=== PATIENT | female | born 1960 | race Caucasian/White ===

== ENCOUNTER 2020-09-24 05:45 | Day surgery (SDC) | payer MEDICARE ==
[~2020-09-24] VITALS: Ht 170.2 cm; Wt 56.7 kg
[~2020-09-24 05:45] MED LIST: ADVIL200 MG PO; BENTYL 20 MG TA20 MG PO; BUPROPION HCL100 M1 PO; ELAVIL10 MG PO; LYRICA200 MG PO; VERELAN PM100 MG PO
[2020-09-24 06:09] LABS: HEMATOCRIT 37.5 % (36.0-48.0); HEMOGLOBIN 12.2 g/dL (12-16); MCH 29.3 pg (26.0-34.0); MCHC 32.6 g/dL (31.0-37.0); MEAN PLATELET VOLUME 9.3 fL (7.4-10.4); RBC 4.16 10x6/uL (4.00-5.40); RDW 13.4 % (11.5-14.5); WBC 5.6 10x3/uL (4.8-10.8)
[2020-09-24 06:35] LABS: CALC OSMOLALITY 288 mosm/kg (275-300); CALCIUM 9.3 mg/dL (8.5-10.1); CARBON DIOXIDE 31.3 mmol/L (21.0-32.0); CHLORIDE - SERUM 107 mmol/L (98-107); CREATININE - SERUM 0.7 mg/dL (0.6-1.3); GLUCOSE 99 mg/dL (74-106); POTASSIUM - SERUM 3.8 mmol/L (3.5-5.1); SODIUM 146 mmol/L (136-145); UREA NITROGEN 6 mg/dL (7-18); eGFR NON AFRICAN AMERICAN 90 mL/min (90-120)
[2020-09-24 06:58] VITALS: BP 115/67; Ht 170.2 cm; Wt 56.7 kg
== END 2020-09-24 10:55 | disposition home or self-care (01) ==
LOC: D.OPS 05:45
PROVIDERS: Anesthesiology; ATTEND Obstetrics & Gynecology Maternal & Fetal Medicine
DX: N81.10 Cystocele, unspecified (principal); N81.6 Rectocele; R23.9 Unspecified skin changes